=== PATIENT | male | born 1985 | race Caucasian/White ===

== ENCOUNTER 2019-12-26 04:19 | Observation (INO) | payer OTHER, SELFPAY ==
[2019-12-26] VITALS (8 sets, daily range): BP systolic 100–137; BP diastolic 55–71; PULSE 85–96; RESP 17–26; TEMP 36.3–37.2; O2SAT 96–100; BMI 19.6
--- NOTE | ~2019-12-26 | XR_ITS ---
EXAMINATION: XR chest 2V EXAM DATE: 12/26/2019 05:10 INDICATION: Cough. TECHNIQUE: Frontal and lateral projections of the chest obtained and reviewed. Comparison is made to prior examination from 01/26/2009. FINDINGS: There is mild hyperinflation. The lungs are clear. There are no pleural effusions. The c ardiomediastinal silhouette is within normal limits. There is no pneumothorax suspected. The bones and soft tissues are unremarkable. IMPRESSION: No acute cardiopulmonary findings. Reviewed, dictated and finalized at location A.
--- NOTE | 2019-12-26 04:20 | ED.AMS ---
HPI - Altered Mental Status General Chief Complaint: Altered Mental Status Stated Complaint: ISSUES WITH METH, NO SLEEP 2 DAYS Time Seen by Provider: 12/26/19 04:20 Source: patient and EMS Mode of arrival: EMS Limitations: no limitations History of Present Illness HPI narrative: Patient presented via EMS for evaluation of nausea and vomiting. Pt is not altered. Patient reportedly was calling for help outside of hotel he has been staying at. At the time of EMS arrival, patient is tremulous, reporting withdrawal from methamphetamines with last use 3 days ago. Patient reports nausea and numerous episodes of emesis. He states he has been unable to tolerate any oral intake and has not had any access to food. He denies fever, chills, chest pain, cough or shortness of breath. He denies abdominal pain. He states in the past he has struggled also with fentanyl addiction, has been clean for a year and then relapsed with methamphetamine use approximately 10 days ago. Patient currently waiting for a spot at a detox facility. He denies homicidal or suicidal ideation. Related Data Allergies Allergy/AdvReac Type Severity Reaction Status Date / Time banana Allergy Mild rash Verified 09/17/18 09:55 Review of Systems Review of Systems: Narrative: CONSTITUTIONAL: Denies fever, chills, or sweats. EYES: Denies visual changes ENT: Reports rhinorrhea CARDIOVASCULAR: Denies chest pain RESPIRATORY: Denies cough or dyspnea. GASTROINTESTINAL: Denies abdominal pain, reports nausea and vomiting SKIN: Reports injection sites to left forearm MUSCULOSKELETAL: Denies back pain, joint pain, or myalgia. NEUROLOGIC: Reports mild headache PMFSH Past Medical History Medical History (Updated 12/26/19 @ 06:52 by Arielle Flynn MD) Anxiety Asthma Depression Substance abuse Social History Social History Smoking status: Current some day smoker Tobacco type: cigarettes Substance use: current Substance use type: marijuana, amphetamines and opiates Gender identity (if verbalized by the patient): Male Exam Narrative: Exam Narrative: GENERAL: Awake, alert, conversant, thin, tremulous HEAD: Normocephalic, atraumatic. EYES: PERRLA and EOMI. ENT: Nares clear, no rhinorrhea or epistaxis. Mucous membranes dry. NECK: Supple. CHEST: No respiratory distress, breathing even and non labored HEART: Regular rate, sinus rhythm ABDOMEN: Scaphoid, non distended, non tender EXTREMITIES: Normal range of motion. No edema. SKIN: Warm, dry, track yousif of bilateral antecubital fossa's, small wound right upper extremity, no discharge, no bleeding NEURO:No focal deficits. Alert and oriented x3 Course Vital Signs Vital signs: Vital Signs Temperature 36.3 C L 12/26/19 04:20 Pulse Rate 96 12/26/19 04:20 Respiratory Rate 19 12/26/19 04:20 Blood Pressure 118/63 12/26/19 04:20 Pulse Oximetry 98 12/26/19 04:20 Temperature 36.8 C 12/26/19 06:18 Pulse Rate 91 12/26/19 06:18 Respiratory Rate 19 12/26/19 06:18 Blood Pressure 116/64 12/26/19 06:18 Pulse Oximetry 99 12/26/19 06:18 MDM - Altered Mental Status MDM Narrative Medical decision making narrative: Patient presented for evaluation of nausea and vomiting in the setting of what seems to be methamphetamine use and withdrawal. At the time of assessment, patient is tremulous, dehydrated appearing. He is quite thin. Patient is not altered. No reported pain at the time of assessment. IV access obtained and labs are drawn. EKG without any ischemic changes. Laboratory results notable for significant increase in creatinine to 1.7 with prior baseline being 0.6. This is likely all prerenal secondary to dehydration and vomiting. No anion gap. No severe electrolyte derangement. Patient had recurrent vomiting in the ER, he was given Zofran, Reglan, Benadryl, Ativan, and then finally Haldol with resolution in his vomiting. Patient is denying any abdominal pain. His abdominal exam
--- NOTE | 2019-12-26 04:31 | ECG_ITS ---
Measurements Intervals [place] Rate: 93 P: 66 ND: 158 QRS: 79 QRSD: 102 T: 63 QT: 394 QTc: 491 Interpretive Statements SINUS RHYTHM BASELINE ARTIFACT- II, III, AVR, AVL, AVF, V1-V6 BORDERLINE ECG Electronically Signed On 12-26-2019 7:05:10 CDT by Bishnu Espinosa D.O.
[2019-12-26] MEDS: diphenhydrAMINE HCl INJ 50 MG/ML VIAL IV PUSH (04:32)
[2019-12-26] MEDS: LORazepam INJ (*CRX) 2 MG/ML VIAL IV PUSH (04:32)
[2019-12-26] MEDS: ONDANSETRON INJ 4 MG/2 ML VIAL IV PUSH ×2 (04:33→20:00)
[2019-12-26] MEDS: SODIUM CHLORIDE 0.9% IV 2,000 ML 999 ML IV CONT (04:34)
[2019-12-26 04:46] LABS: Glucose Point of Care 70 (65-105)
[2019-12-26 04:51] LABS: Basophils Absolute Auto 0.2 K/mm3 (0.0-0.1); Basophils Percent Auto 1.3 % (0.2-1.2); Eosinophils Absolute Auto 0.2 K/mm3 (0-0.3); Eosinophils Percent Auto 1.2 % (0-4.4); Hematocrit 33.7 % (42.0-52.0); Hemoglobin 12.4 g/dL (14.0-18.0); Immature Granulocyte Absolute 0.04 K/mm3 (0.00-0.031); Immature Granulocyte Percent A 0.3 % (0-0.5); Lymphocytes Absolute Auto 4.28 K/mm3 (0.9-3.2); Lymphocytes Percent Auto 30.9 % (18.3-44.2); Mean Corpuscular HGB Conc 36.8 g/dl (32-36); Mean Corpuscular Volume 84.3 fl (80-100); Mean Platelet Volume 10.1 fl (7.4-10.4); Monocytes Absolute Auto 1.3 K/mm3 (0.1-0.6); Monocytes Percent Auto 9.4 % (2.6-8.5); Neutrophils Absolute Auto 7.9 K/mm3 (1.3-6.7); Neutrophils Percent Auto 56.9 % (45.5-73.1); Platelet Count Result 391 k/mm3 (150-375); Red Cell Distribution Width 12.8 % (11.5-14.5); White Blood Count 13.8 K/mm3 (4.5-10.0)
[2019-12-26 05:00] LABS: INR 1.2; Partial Thromboplastin Time 28.4 SECONDS (22.3-36.8); Prothrombin Time 14.8 Seconds (11.1-14.7)
[2019-12-26 05:10] LABS: Alanine Aminotransferase 43 U/L (4-50); Albumin Level 4.3 g/dL (3.5-5.1); Alkaline Phosphatase 134 U/L (38-126); Anion Gap 14 mmol/L (8-16); Aspartate Amino Transferase 54 U/L (17-59); Bilirubin,Total 1.2 mg/dL (0.2-1.3); Blood Urea Nitrogen 27 mg/dL (9-20); Calcium 8.7 mg/dL (8.4-10.2); Carbon Dioxide 20 mmol/L (22-30); Chloride 98 mmol/L (98-107); Creatine Kinase 510 U/L (55-170); Estimated CRCL calculation 51 ml/min; Estimated Glomerular Filt Rate 47; Glucose 77 mg/dL (75-110); Potassium 3.4 mmol/L (3.4-5.0); Sodium 132 mmol/L (137-145)
[2019-12-26] MEDS: LORazepam INJ (*CRX) 2 MG/ML VIAL 1 MG IV PUSH (05:21)
[2019-12-26] MEDS: METOCLOPRAMIDE HCL INJ 10 MG/2 ML VIAL IV PUSH (05:43)
[2019-12-26] MEDS: HALOPERIDOL LACTATE 5 MG/ML VIAL 2.5 MG IV PUSH (05:43)
[2019-12-26 05:59] LABS: Add Urine Microscopic? YES; Appearance Urine Cloudy (Clear); Bacteria Urine Trace /hpf; Bilirubin Urine Negative (Negative); Blood Urine Negative (Negative); Color Urine Yellow (Yellow); Glucose Urine UA Negative (Negative); Hyaline Casts Urine 30-49 /lpf; Ketones Urine Negative (Negative); Leukocyte Esterase Ur Negative LEU/UL (Negative); Mucus Urine Heavy /lpf; Nitrate Urine Negative (Negative); Protein Urine 1+ mg/dL (Negative); RBC Urine 0-2 /hpf (0-2); Specific Grav Ur 1.018 (1.001-1.035); Urobilinogen Urine Negative mg/dL (<2.0)
[2019-12-26 06:10] LABS: Barbiturate Screen Urine Negative (Negative); Benzodiazepines Screen Urine Negative (Negative)
[2019-12-26 06:12] LABS: Cannabinoid Screen Urine Negative (Negative); Cocaine Screen Urine Negative (Negative); Methadone Screen Urine Negative (Negative); Opiate Screen Urine Negative (Negative); Phencyclidine Screen Urine Negative (Negative)
[2019-12-26 06:36] LABS: Amphetamine Screen Urine Positive (Negative)
[2019-12-26 07:08] LABS: Anion Gap 8 mmol/L (8-16); Blood Urea Nitrogen 26 mg/dL (9-20); Calcium 7.7 mg/dL (8.4-10.2); Carbon Dioxide 20 mmol/L (22-30); Chloride 104 mmol/L (98-107); Creatine Kinase 615 U/L (55-170); Estimated CRCL calculation 62 ml/min; Estimated Glomerular Filt Rate 59; Glucose 68 mg/dL (75-110); Potassium 3.2 mmol/L (3.4-5.0); Sodium 132 mmol/L (137-145)
--- NOTE | 2019-12-26 07:12 | PM.IMHP ---
H&P: HPI History of Present Illness Date/Time: 12/26/19 07:12 Chief complaint: Dehydration/MAICO/Substance abuse Narrative: Miguel Dumont III is a 34 year old male with hx of substance abuse here for nausea and vomiting. Patient arouses but extremely somnolent. As such, the majority of the hx obtained from the chart. I called the salesperson neckties (Samantha Moreno) but no answer at the phone number given. Patient was calling for help outside his hotel he was staying. On EMS arrival, patient with n/v and was tremulous with report of withdrawal from methamphetamine. Patient brought in by EMS. In the ED, patient was hemodynamically stable. Patient was not altered on admission. Creatinine 1.7, WBC 13.8, CXR clear, TCK 615 and UDS positive for Amph elevated. He stated he had been unable to tolerate any oral intake and has not had any access to food. He denied fever, chills, chest pain, cough, shortness of breath or abdominal pain per ED physician note. He has struggled with fentanyl addiction but has been clean for a year. Patient also has hx of methamphetamine abuse and relapsed with methamphetamine use approximately 10 days ago. Patient last used meth 3 days ago. Patient currently waiting for a spot at a detox facility. He denied homicidal or suicidal ideation. Patient received Benadryl 50mg IV, Ativan 2mg IV, Zofran, Reglan, another Ativan dose 1mg and Haldol 2.5mg IV. Review of Systems Review of Systems: ROS unobtainable: Yes unobtainable due to mental status PMFSH Past Medical History Medical History (Updated 12/26/19 @ 07:48 by Hever Brown MD) Anxiety Asthma Depression Hepatitis C antibody positive in blood Substance abuse Family History Family History (Updated 12/26/19 @ 07:38 by Hever Brown MD) Other Patient unable to provide medical history Social History Social History Smoking status: Current some day smoker Tobacco type: cigarettes Alcohol intake: unknown Substance use: current Substance use type: marijuana, amphetamines and opiates Gender identity (if verbalized by the patient): Male Spiritual care concerns: No Meds Home Medications and Allergies Home Medications Medication Instructions Recorded Confirmed Type buprenorphine-naloxone 1 film BUCCAL BID 12/26/19 12/26/19 History buspirone 15 mg PO QID 12/26/19 12/26/19 History gabapentin 300 mg TID 12/26/19 12/26/19 History hydroxyzine pamoate 50 mg PO QID PRN 12/26/19 12/26/19 History prazosin 1 mg HS 12/26/19 12/26/19 History quetiapine 25 mg PO BID PRN 12/26/19 12/26/19 History sertraline 200 mg PO DAILY 12/26/19 12/26/19 History Allergies Allergy/AdvReac Type Severity Reaction Status Date / Time banana Allergy Mild rash Verified 09/17/18 09:55 Vital Signs Vital Signs - 24 hr 12/26/19 04:20 12/26/19 05:48 12/26/19 06:18 Temperature 97.4 F L 98.3 F Pulse Rate 96 87 91 Respiratory Rate 19 26 H 19 Blood Pressure 118/63 109/71 116/64 Pulse Oximetry 98 96 99 12/26/19 06:52 Temperature Pulse Rate 88 Respiratory Rate 20 Blood Pressure 128/70 Pulse Oximetry 99 Exam Narrative: Exam Narrative: AF 98.3 128/70 88 20 99% Gen - well-nourished, well-developed male in no acute respiratory distress who is nontoxic-appearing lying semi recumbent in bed HEENT - normocephalic. Atraumatic. Pupils equal round and poorly reactive. Extraocular motions intact. Sclera clear. Nares patent. Oropharynx was not visualized. Neck - neck was supple. No dominant adenopathy or masses. Chest - lungs are clear to auscultation anteriorly. No wheezes or crackles. CV - heart was regular rate and rhythm. S1-S2. No murmurs gallops or rubs. Abd - abdomen was soft. No apparent tenderness. Nondistended. Positive bowel sounds. Ext - no clubbing, cyanosis or edema. 2+ DP pulses bilaterally. Neuro - patient is somnolent but arouses. He mumbles a few word
--- NOTE | 2019-12-26 08:05 | ADMGEN ---
This patient, Miguel Dumont III, was admitted to Medical Room 343-01. Patient/family oriented to hospital policies and general routines including ID bracelet, bed and alarms, visiting hours, pain management, procedures, bathroom and other care routines, personal items, smoking policy, room service/diet, and visiting hours. Valuables list has been completed. Information on how to activate the Rapid Response Team has been discussed. Patient/Family are encouraged to report perceived risks to care and to ask questions if they do not understand what they are told or what they should do.
[2019-12-26] MEDS: SODIUM CHLORIDE 0.9% IV 1,000 ML 150 ML IV CONT ×3 (08:52→22:47)
[2019-12-26 12:29] LABS: Anion Gap 8 mmol/L (8-16); Blood Urea Nitrogen 25 mg/dL (9-20); Carbon Dioxide 20 mmol/L (22-30); Chloride 105 mmol/L (98-107); Estimated CRCL calculation 77 ml/min; Estimated Glomerular Filt Rate > 60; Glucose 70 mg/dL (75-110); Potassium 3.2 mmol/L (3.4-5.0); Sodium 133 mmol/L (137-145)
[2019-12-26] MEDS: busPIRone HCL 5 MG TABLET 15 MG PO (22:47)
[2019-12-26] MEDS: GABAPENTIN 300 MG CAPSULE PO (22:48)
[2019-12-27 05:11] VITALS: BP 135/80; PULSE 84; RESP 16; TEMP 36.6; O2SAT 100
[2019-12-27] MEDS: SODIUM CHLORIDE 0.9% IV 1,000 ML 150 ML IV CONT (05:29)
[2019-12-27 05:56] LABS: Basophils Absolute Auto 0.1 K/mm3 (0.0-0.1); Basophils Percent Auto 1.4 % (0.2-1.2); Eosinophils Absolute Auto 0.5 K/mm3 (0-0.3); Eosinophils Percent Auto 6.4 % (0-4.4); Hematocrit 31.1 % (42.0-52.0); Hemoglobin 11.1 g/dL (14.0-18.0); Immature Granulocyte Absolute 0.01 K/mm3 (0.00-0.031); Immature Granulocyte Percent A 0.1 % (0-0.5); Lymphocytes Absolute Auto 1.92 K/mm3 (0.9-3.2); Lymphocytes Percent Auto 26.6 % (18.3-44.2); Mean Corpuscular HGB Conc 35.7 g/dl (32-36); Mean Corpuscular Hemoglobin 30.4 pg (26-34); Mean Corpuscular Volume 85.2 fl (80-100); Mean Platelet Volume 9.6 fl (7.4-10.4); Monocytes Absolute Auto 0.5 K/mm3 (0.1-0.6); Monocytes Percent Auto 7.5 % (2.6-8.5); Neutrophils Absolute Auto 4.2 K/mm3 (1.3-6.7); Platelet Count Result 350 k/mm3 (150-375); Red Blood Count 3.65 M/mm3 (4.6-6.20); Red Cell Distribution Width 13.1 % (11.5-14.5); White Blood Count 7.2 K/mm3 (4.5-10.0)
[2019-12-27 06:08] LABS: Alanine Aminotransferase 41 U/L (4-50); Alkaline Phosphatase 105 U/L (38-126); Anion Gap 5 mmol/L (8-16); Aspartate Amino Transferase 55 U/L (17-59); Bilirubin,Total 0.9 mg/dL (0.2-1.3); Blood Urea Nitrogen 11 mg/dL (9-20); Carbon Dioxide 25 mmol/L (22-30); Chloride 108 mmol/L (98-107); Creatine Kinase 399 U/L (55-170); Estimated CRCL calculation 118 ml/min; Estimated Glomerular Filt Rate > 60; Glucose 83 mg/dL (75-110); Potassium 3.3 mmol/L (3.4-5.0); Sodium 138 mmol/L (137-145)
[2019-12-27 06:39] LABS: HIV 1/2 Ab P24 Ag Result Negative (Negative)
[2019-12-27] MEDS: POTASSIUM CHLORIDE 20 MEQ TABLET 40 MEQ PO (07:41)
[2019-12-27 08:00] VITALS: PULSE 86; RESP 18; O2SAT 98
[2019-12-27] MEDS: SERTRALINE HCL 50 MG TABLET 200 MG PO (09:46)
[2019-12-27] MEDS: GABAPENTIN 300 MG CAPSULE PO ×3 (09:47→17:20)
[2019-12-27] MEDS: busPIRone HCL 5 MG TABLET 15 MG PO ×4 (09:47→20:18)
--- NOTE | 2019-12-27 11:06 | PM.IMPN ---
Progress Note: A&P Assessment and Plan (1) Nausea & vomiting: Qualifiers: Vomiting Intractability: intractable Vomiting type: unspecified Qualified Code(s): R11.2 - Nausea with vomiting, unspecified Code(s): R11.2 - Nausea with vomiting, unspecified Status: Acute Assessment and Plan: Patient with intractable n/v felt related to methamphetamine withdrawal. Symptoms better now and able to tolerate oral intake. Continue to monitor. (2) Withdrawal from methamphetamine: Code(s): F15.23 - Other stimulant dependence with withdrawal Status: Acute Assessment and Plan: As above. (3) Methamphetamine abuse: Code(s): F15.10 - Other stimulant abuse, uncomplicated Status: Acute Assessment and Plan: Patient educated about the benefits of abstaining drug use. He appears interested in following up with long-term inpatient rehab. Discussed with case management about coordinating with the rehab facility to see if patient can be discharged and then readmitted there. (4) Dehydration: Code(s): E86.0 - Dehydration Status: Acute Assessment and Plan: Related to the n/v and poor access to food. Eating but not much. He states he has money but buying food has not been a priority. Continue IV fluids. Continue monitor BP and renal function. (5) Elevated CK: Code(s): R74.8 - Abnormal levels of other serum enzymes Status: Acute Assessment and Plan: TCK 615 this morning felt related to the tremors possibly muscle rigidity. Repeat today is 399. Continue IV fluids. (6) MAICO (acute kidney injury): Code(s): N17.9 - Acute kidney failure, unspecified Status: Acute Assessment and Plan: Cr 1.7 on admission. Related to the drug use and dehydration. Creatinine down to 0.7. Not eating much so will continue IV fluids. (7) Asthma: Code(s): J45.909 - Unspecified asthma, uncomplicated Status: Acute Assessment and Plan: No wheezing on exam. Not on chronic inhalers for this. Continue to monitor. (8) Depression: Code(s): F32.9 - Major depressive disorder, single episode, unspecified Status: Acute Assessment and Plan: Mood stable. Appears to want to get better. (9) Hepatitis C antibody positive in blood: Code(s): R76.8 - Other specified abnormal immunological findings in serum Status: Acute Assessment and Plan: Patient with reactive hepatitis-C antibody screen last year. No documentation of viral load. Hepatitis C viral load pending. HIV negative. (10) DVT prophylaxis: Code(s): Z29.9 - Encounter for prophylactic measures, unspecified Status: Acute Assessment and Plan: SCDs Subjective Date/time seen: 12/27/19 11:06 Interval history: Date of service 12/26 34yo male with hx of substance abuse here for intractable nausea and vomiting. Patient feels weak and complains of headache and blurry vision. He denies any sore throat but does have dry mouth. He is tolerating some oral intake but did have slight nausea. No vomiting. Denies chest pain. States he is ready to enter rehab. Exam Narrative: Exam Narrative: AF 98.0 135/80 84 16 100% Gen - NARD lying semirecumbent in bed Chest - CTA bilaterally CV - RRR. S1-S2. Abd - soft, +BS, voluntary guarding but improved with distraction Ext - no edema. 2+ DP pulses bilaterally. Neuro - patient is awake and alert. No tremors. Psych - nml mood but depressed affect Skin - warm and dry Objective Data Vital Signs Vital Signs: Vital Signs - 24 hr 12/26/19 14:00 12/26/19 19:53 12/27/19 05:11 Temperature 97.3 F L 99 F 98 F Pulse Rate 87 85 84 Respiratory Rate 18 17 16 Blood Pressure 113/64 137/70 135/80 Pulse Oximetry 100 100 100 Intake/Output Intake/Output: Intake & Output 12/24/19 12/25/19 12/26/19 12/27/19 23:59 23:59 23:59 23:59 Int
[2019-12-27] MEDS: ONDANSETRON INJ 4 MG/2 ML VIAL IV PUSH (11:49)
[2019-12-27] MEDS: SODIUM CHLORIDE 0.9% IV 1,000 ML 75 ML IV CONT (12:27)
[2019-12-27 14:00] VITALS: BP 122/77; PULSE 86; RESP 18; TEMP 37.1; O2SAT 98
[2019-12-27] MEDS: QUEtiapine FUMARATE 25 MG TABLET PO (15:51)
[2019-12-27] MEDS: LORazepam (*CRX) 0.5 MG TABLET PO (18:08)
[2019-12-27 19:42] VITALS: BP 120/64; PULSE 81; RESP 16; TEMP 37.3; O2SAT 97
[2019-12-28] MEDS: LORazepam (*CRX) 0.5 MG TABLET PO ×3 (00:53→11:05)
[2019-12-28] MEDS: SODIUM CHLORIDE 0.9% IV 1,000 ML 75 ML IV CONT (01:09)
[2019-12-28 05:29] VITALS: BP 143/87; PULSE 78; RESP 18; TEMP 36.7; O2SAT 99
[2019-12-28] MEDS: QUEtiapine FUMARATE 25 MG TABLET PO (06:02)
[2019-12-28 06:55] LABS: Anion Gap 5 mmol/L (8-16); Calcium 8.3 mg/dL (8.4-10.2); Carbon Dioxide 28 mmol/L (22-30); Chloride 106 mmol/L (98-107); Estimated CRCL calculation 136 ml/min; Estimated Glomerular Filt Rate > 60; Glucose 119 mg/dL (75-110); Magnesium 1.7 mg/dL (1.6-2.3); Potassium 3.5 mmol/L (3.4-5.0); Sodium 139 mmol/L (137-145)
[2019-12-28 06:56] LABS: Blood Urea Nitrogen < 2 mg/dL (9-20)
[2019-12-28 08:00] VITALS: PULSE 78; RESP 18; O2SAT 99
[2019-12-28] MEDS: GABAPENTIN 300 MG CAPSULE PO ×2 (08:43→13:02)
[2019-12-28] MEDS: busPIRone HCL 5 MG TABLET 15 MG PO ×2 (08:43→13:02)
[2019-12-28] MEDS: SERTRALINE HCL 50 MG TABLET 200 MG PO (08:44)
--- NOTE | 2019-12-28 10:15 | PC.NURSE ---
Ambulated with standby assist down hallway and back to room. Tolerated with no problems.
--- NOTE | 2019-12-28 11:59 | PM.DS ---
DS: Admitting Diagnosis Admitting Diagnosis Admitting Diagnosis: Dehydration/MAICO/Substance abuse DS: Discharge Diagnosis Discharge Diagnosis (1) Nausea & vomiting: Qualifiers: Vomiting Intractability: intractable Vomiting type: unspecified Qualified Code(s): R11.2 - Nausea with vomiting, unspecified Code(s): R11.2 - Nausea with vomiting, unspecified Status: Acute Assessment and Plan: Patient with intractable n/v felt related to methamphetamine withdrawal. Symptoms better now and able to tolerate oral intake. (2) Withdrawal from methamphetamine: Code(s): F15.23 - Other stimulant dependence with withdrawal Status: Acute Assessment and Plan: As above. (3) Methamphetamine abuse: Code(s): F15.10 - Other stimulant abuse, uncomplicated Status: Acute Assessment and Plan: Patient educated about the benefits of abstaining drug use. He appears interested in following up with long-term inpatient rehab. Discussed with case management today but no rehab bed available at this time. Patient will need to keep in contact with these facilities to see when a bed will be available. He and family was informed about this. (4) Dehydration: Code(s): E86.0 - Dehydration Status: Acute Assessment and Plan: Related to the n/v and poor access to food. Eating but not much. He states he has money but buying food has not been a priority. Treated with IV fluids. (5) Elevated CK: Code(s): R74.8 - Abnormal levels of other serum enzymes Status: Acute Assessment and Plan: TCK up to 615 felt related to the tremors possibly muscle rigidity. With IV fluids, repeat dropped to 399. (6) MAICO (acute kidney injury): Code(s): N17.9 - Acute kidney failure, unspecified Status: Acute Assessment and Plan: Cr 1.7 on admission. Related to the drug use and dehydration. Creatinine down to 0.6. Eating better. (7) Asthma: Code(s): J45.909 - Unspecified asthma, uncomplicated Status: Acute Assessment and Plan: No wheezing on exam. Not on chronic inhalers for this. (8) Depression: Code(s): F32.9 - Major depressive disorder, single episode, unspecified Status: Acute Assessment and Plan: Mood stable. Appears to want to get better. Drug rehab would be of benefit for this patient (9) Hepatitis C antibody positive in blood: Code(s): R76.8 - Other specified abnormal immunological findings in serum Status: Acute Assessment and Plan: Patient with reactive hepatitis-C antibody screen last year. No documentation of viral load. Hepatitis C viral load pending. HIV negative. DS: Summary Hospital Course Reason for hospitalization: 34yo male here for intractable nausea and vomiting from methamphetamine abuse/withdrawal. Please see H&P for details Hospital Course: As above Time Spent with Patient Time attestation: Total time spent providing and/or coordinating discharge services:35 minutes Time spent: Greater than 30 minutes Specific discharge activities: Care of the patient, discussion with care coordination and left message with family Exam Narrative: Exam Narrative: AF 98.1 143/87 78 18 99% Gen - NARD lying semirecumbent in bed Chest - CTA bilaterally CV - RRR. S1-S2. Abd - soft, +BS, NT Ext - no edema Neuro - patient is awake and alert. No tremors. Psych - more engaged Skin - warm and dry DS: Data Data Completed and Pending Labs on day of discharge: Labs from last 24 hours 12/28/19 05:22 Sodium 139 Potassium 3.5 Chloride 106 Carbon Dioxide 28 Anion Gap 5 L BUN < 2 L Creatinine 0.60 L Estim Creat Clear Calc 136 Estimated GFR > 60 Glucose 119 H Calcium 8.3 L Magnesium 1.7 Discharge Plan Discharge Attending physician on discharge: Hever Brown Discharging Clinician: Will Brown
[2019-12-28 14:00] VITALS: BP 130/75; PULSE 104; RESP 18; TEMP 37.3; O2SAT 99
[2019-12-28] MEDS: HEPARIN SODIUM 5,000 UNITS/ML VIAL 5000 UNITS SUB-Q (14:20)
[2019-12-30 19:48] LABS: Hepatitis C Viral RNA PCR 38100 IU/mL
[2020-01-01 22:37] LABS: HCV Genotype, LiPA 3
--- NOTE | 2020-01-05 15:04 | PC.NURSE ---
HEp C Viral load- 44427 and 4.58. Results faxed to Dr. Marley. Dr. Kevin jimenez.
== END 2019-12-28 14:50 | disposition home or self-care (01) ==
LOC: ANHED 06:48 → ANH3MED 07:45
PROVIDERS: Admitting Provider Internal Medicine; Emergency Provider Emergency Medicine; PCP Family Medicine; Visit Provider Internal Medicine
DX: F15.23 Other stimulant dependence with withdrawal (principal); N17.9 Acute kidney failure, unspecified; E86.0 Dehydration; R11.15 Cyclical vomiting syndrome unrelated to migraine; J45.909 Unspecified asthma, uncomplicated; F41.9 Anxiety disorder, unspecified; F32.9 Major depressive disorder, single episode, unspecified; R74.8 Abnormal levels of other serum enzymes; R76.8 Other specified abnormal immunological findings in serum; F17.210 Nicotine dependence, cigarettes, uncomplicated; F11.90 Opioid use, unspecified, uncomplicated; F12.90 Cannabis use, unspecified, uncomplicated
CPT/HCPCS: 36415; 71046; 80048; 80053; 80307; 81001; 82550; 82948; 83735; 85025; 85610; 85730; 86703; 87086; 87088; 87522; 93005; 96361; 96372; 96374; 96375; 96376; 99285; A9270; G0378; G0379; G0432; J1200; J1630; J1644; J2060; J2405; J2765; J7030

== ENCOUNTER 2019-12-29 12:20 | Emergency (ER) | payer OTHER, SELFPAY ==
[2019-12-29 13:17] VITALS: BP 144/90; PULSE 97; RESP 16; TEMP 36.8; O2SAT 100
--- NOTE | 2019-12-29 14:27 | ECG_ITS ---
Measurements Intervals [place] Rate: 110 P: 72 [place]: 135 QRS: 74 QRSD: 93 T: 60 QT: 356 QTc: 482 Interpretive Statements SINUS TACHYCARDIA ABNORMAL ECG Electronically Signed On 12-30-2019 6:41:36 CDT by Bishnu Espinosa D.O.
[2019-12-29 16:19] VITALS: BP 130/91; PULSE 110; RESP 16; TEMP 36.8; O2SAT 98
--- NOTE | 2019-12-29 19:03 | PC.NURSE ---
PER LAI FREEDMAN WHO PLACED ORDERS ON PT, SHE STATES THAT IF [employer] DON'T THINK THAT PT NEEDS ORDERS THEN WE CAN HOLD OFF ON THEM.
[2019-12-29 19:32] VITALS: RESP 18
--- NOTE | 2019-12-29 19:36 | PC.NURSE ---
during initial assessment with EDP Dr. Berry and this RN at pt's bedside, pt requests to be transferred to another facility. pt refusing any testing here. pt denies SI/HI. pt offered AMA form to sign and leave, pt refusing to sign anything. Pt states that he will just call EMS to take him to another facilty. Pt educated that he cannot do that, that EMS will non transfer him from this facility to another facility w/o certificate of transfer and proper documentation/paperwork because it is a violation of state laws.
--- NOTE | 2019-12-29 19:38 | ED.GENADULT ---
HPI - General Adult General Chief complaint: Overdose Stated complaint: overdose on meth Time Seen by Provider: 12/29/19 19:30 History of Present Illness HPI narrative: Pt c/o not feeling well due after doing meth earlier today but now states he feels fine and refusing any work up, will signed out ama. Pt is alert and oriented x 3. Denies any suicidal or homicidal ideations. Denies any thoughts of self injury. Denies overdosing on meth, states he was having some bad effects earlier but now resolved. Related Data Home Medications Medication Instructions Recorded Confirmed buspirone 5 mg PO BID 12/29/19 gabapentin 100 mg PO BID 12/29/19 sertraline [Zoloft] 25 mg PO DAILY 12/29/19 Allergies Allergy/AdvReac Type Severity Reaction Status Date / Time No Known Allergies Allergy Verified 12/29/19 13:21 Review of Systems Review of Systems: All systems reviewed & are unremarkable except as noted in HPI and below Constitutional: Constitutional: Denies body ache(s), Denies chills, Denies excessive sweating, Denies fatigue, Denies fever(s), Denies headache(s), Denies lethargy, Denies malaise, Denies weakness and Denies weight loss Eyes: Eyes: Denies blurry vision, Denies change in vision and Denies loss of vision ENT: Denies dizziness, Denies ear discharge, Denies headache(s), Denies lip swelling, Denies epistaxis, Denies nasal congestion, Denies neck pain, Denies throat swelling and Denies tongue swelling Cardiovascular: Cardiovascular: Denies chest pain, Denies chest pain at rest, Denies chest pain with activity, Denies diaphoresis, Denies rapid heart rate, Denies edema, Denies irregular heart rhythm, Denies lightheadedness, Denies palpitations, Denies dyspnea and Denies dyspnea on exertion Respiratory: Respiratory: Denies chest congestion, Denies cough, Denies hemoptysis, Denies dyspnea and Denies dyspnea on exertion Gastrointestinal: Gastrointestinal: Denies abdominal pain, Denies melena, Denies hematochezia, Denies diarrhea, Denies nausea, Denies vomiting and Denies hematemesis Musculoskeletal: Musculoskeletal: Denies abnormal gait, Denies deformity, Denies joint swelling, Denies limited range of motion, Denies neck pain and Denies numbness Neurologic: Denies Abnormal speech present, Denies abnormal gait, Denies confusion, Denies dizziness, Denies headache(s), Denies focal weakness, Denies loss of vision, Denies numbness, Denies Other visual disturbances, Denies Sensory deficit (Neuro) and Denies weakness Psychiatric: Psychiatric: Denies confusion, Denies depression, Denies auditory hallucinations, Denies homicidal ideation and Denies suicidal ideation Endocrine: Endocrine: Denies cold intolerance, Denies excessive sweating, Denies fatigue, Denies heat intolerance and Denies palpitations Hematologic/Lymphatic: Hematologic/Lymphatic: Denies easy bleeding and Denies easy bruising Allergic/Immunologic: Allergic/Immunologic: Denies lip swelling, Denies throat swelling and Denies tongue swelling [facility] Social History Social History Gender identity (if verbalized by the patient): Male Exam Const: General: cooperative, healthy appearing, comfortable, no acute distress, well developed, alert and awake; No confusion Orientation/consciousness: oriented to person, oriented to place, oriented to time, patient oriented x3 and No confusion Limitations: no limitations HENMT: Head: normal to inspection, normocephalic and atraumatic Ears: hearing grossly normal bilaterally, TM normal on the right and TM normal on the left General nose exam: Normal external nose present, Normal nares present and No nasal discharge present Face and sinus: normal facial exam Mouth: Yes Normal oral and palatal mucosa present, Yes lip normal, Yes tongue normal and Yes oropharynx normal Throat: posterior oropharynx normal, tonsils normal and uvula midline Eyes: General: appearance normal, both eyes and all related structures Pupils: Equal, round and re
[2019-12-29 20:46] VITALS: BP 161/107; PULSE 111; RESP 20; TEMP 37.2; O2SAT 100
[2019-12-29 21:29] LABS: Add Urine Microscopic? YES; Appearance Urine Clear (Clear); Bilirubin Urine Negative (Negative); Blood Urine Negative (Negative); Color Urine Yellow (Yellow); Glucose Urine UA Negative (Negative); Ketones Urine Negative (Negative); Leukocyte Esterase Ur Negative LEU/UL (Negative); Mucus Urine Heavy /lpf; Nitrate Urine Negative (Negative); Protein Urine 1+ mg/dL (Negative); Specific Grav Ur 1.027 (1.001-1.035); Squamous Epithelial Cell Urine Occasional /hpf (Few)
[2019-12-29] MEDS: SODIUM CHLORIDE 0.9% IV 1,000 ML 999 ML IV CONT (21:37)
[2019-12-29 21:41] LABS: Basophils Absolute Auto 0.1 K/mm3 (0.0-0.1); Basophils Percent Auto 0.7 % (0.2-1.2); Eosinophils Absolute Auto 0.1 K/mm3 (0-0.3); Eosinophils Percent Auto 0.9 % (0-4.4); Hematocrit 37.2 % (42.0-52.0); Immature Granulocyte Absolute 0.02 K/mm3 (0.00-0.031); Immature Granulocyte Percent A 0.2 % (0-0.5); Lymphocytes Absolute Auto 2.57 K/mm3 (0.9-3.2); Lymphocytes Percent Auto 29.6 % (18.3-44.2); Mean Corpuscular HGB Conc 34.9 g/dl (32-36); Mean Corpuscular Hemoglobin 30.2 pg (26-34); Mean Corpuscular Volume 86.5 fl (80-100); Mean Platelet Volume 9.3 fl (7.4-10.4); Monocytes Absolute Auto 0.6 K/mm3 (0.1-0.6); Monocytes Percent Auto 7.3 % (2.6-8.5); Neutrophils Absolute Auto 5.3 K/mm3 (1.3-6.7); Neutrophils Percent Auto 61.3 % (45.5-73.1); Platelet Count Result 453 k/mm3 (150-375); Red Cell Distribution Width 13.7 % (11.5-14.5); White Blood Count 8.7 K/mm3 (4.5-10.0)
[2019-12-29 21:45] LABS: Barbiturate Screen Urine Negative (Negative); Benzodiazepines Screen Urine Negative (Negative)
[2019-12-29 21:47] LABS: Cannabinoid Screen Urine Negative (Negative); Cocaine Screen Urine Negative (Negative); Methadone Screen Urine Negative (Negative); Opiate Screen Urine Negative (Negative); Phencyclidine Screen Urine Negative (Negative)
[2019-12-29 21:52] LABS: Alanine Aminotransferase 53 U/L (4-50); Albumin Level 4.2 g/dL (3.5-5.1); Alkaline Phosphatase 136 U/L (38-126); Anion Gap 8 mmol/L (8-16); Aspartate Amino Transferase 48 U/L (17-59); Bilirubin,Total 0.6 mg/dL (0.2-1.3); Blood Urea Nitrogen 12 mg/dL (9-20); Calcium 9.3 mg/dL (8.4-10.2); Carbon Dioxide 29 mmol/L (22-30); Chloride 103 mmol/L (98-107); Creatine Kinase 266 U/L (55-170); Estimated CRCL calculation 113 ml/min; Estimated Glomerular Filt Rate > 60; Glucose 123 mg/dL (75-110); Potassium 3.7 mmol/L (3.4-5.0); Sodium 140 mmol/L (137-145)
[2019-12-29 21:56] LABS: Ethanol < 10 mg/dL (<10); Salicylate < 1.0 mg/dL (2-20)
[2019-12-29 22:06] LABS: Amphetamine Screen Urine Positive (Negative)
[2019-12-29 23:35] VITALS: BP 159/109; PULSE 92; RESP 17; O2SAT 100
--- NOTE | 2019-12-30 00:26 | PC.NURSE ---
AT APPROX 2345 ON 12/29/2019 PT TAKEN TO OPPOSITE END OF ED TO USE WALL PHONE. AT APPROX 0010 ON 12/30/2019 THIS RN WENT TO PT'S ED ROOM #13 TO D/C HIM. PT NOT IN ROOM, NOR ANY OF HIS BELONGINGS LEFT IN ROOM #13. PT LEFT PRIOR TO SIGNING D/C PAPERWORK.
== END 2019-12-30 00:10 | disposition left against medical advice (07) ==
LOC: ANHED 19:56
PROVIDERS: Physician Assistant; Emergency Provider Emergency Medicine; PCP Family Medicine
DX: F15.10 Other stimulant abuse, uncomplicated (principal)
CPT/HCPCS: 36415; 80053; 80307; 81001; 82550; 85025; 93005; 96360; 99283; J7030

== ENCOUNTER 2019-12-30 00:51 | Emergency (ER) | payer OTHER, SELFPAY ==
[2019-12-30 00:54] VITALS: BP 166/107; PULSE 92; RESP 16; TEMP 36.6; O2SAT 100
[2019-12-30 00:59] VITALS: BP 166/107; PULSE 92; TEMP 36.6; O2SAT 100
--- NOTE | 2019-12-30 01:25 | PC.NURSE ---
pt to triage desk asking to be seen by md. explained to the patient., he was just d/c'd from this ed, he has chosen to sign back in and be seen by the md, and would have to wait until a bed becomes available. he has been told this multiple times.
--- NOTE | 2019-12-30 02:44 | ED.GENADULT ---
HPI - General Adult General Chief complaint: Unspecified Stated complaint: something wrong History of Present Illness HPI narrative: Pt signed back in, states he's signing back in because we didn't do anything for him and he feels something is wrong and wants to talk to the hand cigar making supervisor. Pt walking with a large suitcase and another large bag. Pt states he is homeless. Pt was seen here tonight, labs were done and was given IVF a few hours ago and just discharged less than an hour ago. Related Data Home Medications Medication Instructions Recorded Confirmed buspirone 5 mg PO BID 12/29/19 gabapentin 100 mg PO BID 12/29/19 sertraline [Zoloft] 25 mg PO DAILY 12/29/19 Allergies Allergy/AdvReac Type Severity Reaction Status Date / Time No Known Allergies Allergy Verified 12/29/19 13:21 Review of Systems Review of Systems: All systems reviewed & are unremarkable except as noted in HPI and below Constitutional: Constitutional: Denies body ache(s), Denies chills, Denies excessive sweating, Denies fatigue, Denies fever(s), Denies headache(s), Denies lethargy, Denies malaise, Denies weakness and Denies weight loss Eyes: Eyes: Denies blurry vision, Denies change in vision and Denies loss of vision ENT: Denies dizziness, Denies ear discharge, Denies headache(s), Denies lip swelling, Denies epistaxis, Denies nasal congestion, Denies neck pain, Denies throat swelling and Denies tongue swelling Cardiovascular: Cardiovascular: Denies chest pain, Denies chest pain at rest, Denies chest pain with activity, Denies diaphoresis, Denies rapid heart rate, Denies edema, Denies irregular heart rhythm, Denies lightheadedness, Denies palpitations, Denies dyspnea and Denies dyspnea on exertion Respiratory: Respiratory: Denies chest congestion, Denies cough, Denies hemoptysis, Denies dyspnea and Denies dyspnea on exertion Gastrointestinal: Gastrointestinal: Denies abdominal pain, Denies melena, Denies hematochezia, Denies diarrhea, Denies nausea, Denies vomiting and Denies hematemesis Musculoskeletal: Musculoskeletal: Denies abnormal gait, Denies deformity, Denies joint swelling, Denies limited range of motion, Denies neck pain and Denies numbness Neurologic: Denies Abnormal speech present, Denies abnormal gait, Denies confusion, Denies dizziness, Denies headache(s), Denies focal weakness, Denies loss of vision, Denies numbness, Denies Other visual disturbances, Denies Sensory deficit (Neuro) and Denies weakness Psychiatric: Psychiatric: Denies confusion, Denies depression, Denies auditory hallucinations, Denies homicidal ideation and Denies suicidal ideation Endocrine: Endocrine: Denies cold intolerance, Denies excessive sweating, Denies fatigue, Denies heat intolerance and Denies palpitations Hematologic/Lymphatic: Hematologic/Lymphatic: Denies easy bleeding and Denies easy bruising Allergic/Immunologic: Allergic/Immunologic: Denies lip swelling, Denies throat swelling and Denies tongue swelling PMFSH Social History Social History Gender identity (if verbalized by the patient): Male Exam Const: General: cooperative, healthy appearing, comfortable, no acute distress, well developed, alert and awake; No confusion Orientation/consciousness: oriented to person, oriented to place, oriented to time, patient oriented x3 and No confusion Limitations: no limitations HENMT: Head: normal to inspection, normocephalic and atraumatic Ears: hearing grossly normal bilaterally, TM normal on the right and TM normal on the left General nose exam: Normal external nose present, Normal nares present and No nasal discharge present Face and sinus: normal facial exam Mouth: Yes Normal oral and palatal mucosa present, Yes lip normal, Yes tongue normal and Yes oropharynx normal Throat: posterior oropharynx normal, tonsils normal and uvula midline Eyes: General: appearance normal, both eyes and all related structures Pupils: Equal, round and reactive pupils presen
[2019-12-30 03:42] VITALS: BP 168/98; PULSE 95; RESP 20; O2SAT 100
== END 2019-12-30 04:16 | disposition home or self-care (01) ==
LOC: ANHED 03:11
PROVIDERS: Emergency Provider Emergency Medicine; PCP Family Medicine
DX: F15.10 Other stimulant abuse, uncomplicated (principal); Z59.0 Homelessness
CPT/HCPCS: 99281

== ENCOUNTER 2019-12-30 04:37 | Emergency (ER) | payer OTHER, SELFPAY ==
--- NOTE | 2019-12-30 04:52 | ED.PSYCH ---
HPI - Psych General Chief Complaint: Psychiatric Symptoms Stated Complaint: si Time Seen by Provider: 12/30/19 04:51 History of Present Illness HPI Narrative: Pt c/o suicidal ideation, started this morning, because you guys won't help me . Pt was here earlier this evening due to Meth abuse. Denies homicidal ideations. Denies plan. Related Data Home Medications Medication Instructions Recorded Confirmed buspirone 5 mg PO BID 12/29/19 gabapentin 100 mg PO BID 12/29/19 sertraline [Zoloft] 25 mg PO DAILY 12/29/19 Allergies Allergy/AdvReac Type Severity Reaction Status Date / Time No Known Allergies Allergy Verified 12/30/19 06:07 Review of Systems Review of Systems: All systems reviewed & are unremarkable except as noted in HPI and below Constitutional: Constitutional: Denies body ache(s), Denies chills, Denies excessive sweating, Denies fatigue, Denies fever(s), Denies headache(s), Denies lethargy, Denies malaise, Denies weakness and Denies weight loss Eyes: Eyes: Denies blurry vision, Denies change in vision and Denies loss of vision ENT: Denies dizziness, Denies ear discharge, Denies headache(s), Denies lip swelling, Denies epistaxis, Denies nasal congestion, Denies neck pain, Denies throat swelling and Denies tongue swelling Cardiovascular: Cardiovascular: Denies chest pain, Denies chest pain at rest, Denies chest pain with activity, Denies diaphoresis, Denies rapid heart rate, Denies edema, Denies irregular heart rhythm, Denies lightheadedness, Denies palpitations, Denies dyspnea and Denies dyspnea on exertion Respiratory: Respiratory: Denies chest congestion, Denies cough, Denies hemoptysis, Denies dyspnea and Denies dyspnea on exertion Gastrointestinal: Gastrointestinal: Denies abdominal pain, Denies melena, Denies hematochezia, Denies diarrhea, Denies nausea, Denies vomiting and Denies hematemesis Musculoskeletal: Musculoskeletal: Denies abnormal gait, Denies deformity, Denies joint swelling, Denies limited range of motion, Denies neck pain and Denies numbness Neurologic: Denies Abnormal speech present, Denies abnormal gait, Denies confusion, Denies dizziness, Denies headache(s), Denies focal weakness, Denies loss of vision, Denies numbness, Denies Other visual disturbances, Denies Sensory deficit (Neuro) and Denies weakness Psychiatric: Psychiatric: Denies confusion, Denies depression, Denies auditory hallucinations, Denies homicidal ideation and Denies suicidal ideation Endocrine: Endocrine: Denies cold intolerance, Denies excessive sweating, Denies fatigue, Denies heat intolerance and Denies palpitations Hematologic/Lymphatic: Hematologic/Lymphatic: Denies easy bleeding and Denies easy bruising Allergic/Immunologic: Allergic/Immunologic: Denies lip swelling, Denies throat swelling and Denies tongue swelling PMFSH Social History Social History Gender identity (if verbalized by the patient): Male Exam Const: General: cooperative, healthy appearing, comfortable, no acute distress, well developed, alert and awake; No confusion Orientation/consciousness: oriented to person, oriented to place, oriented to time, patient oriented x3 and No confusion Limitations: no limitations HENMT: Head: normal to inspection, normocephalic and atraumatic Ears: hearing grossly normal bilaterally, TM normal on the right and TM normal on the left General nose exam: Normal external nose present, Normal nares present and No nasal discharge present Face and sinus: normal facial exam Mouth: Yes Normal oral and palatal mucosa present, Yes lip normal, Yes tongue normal and Yes oropharynx normal Throat: posterior oropharynx normal, tonsils normal and uvula midline Eyes: General: appearance normal, both eyes and all related structures Pupils: Equal, round and reactive pupils present EOM: EOMs intact bilaterally Neck: Neck: normal visual inspection, full ROM, no lymphadenopathy and no meningeal signs Chest: Chest palpation & in
[2019-12-30 05:03] VITALS: BP 138/92; PULSE 89; RESP 16; TEMP 37.1; O2SAT 99
--- NOTE | 2019-12-30 05:10 | PC.NURSE ---
patients belongings in [facility] c [facility] room.
--- NOTE | 2019-12-30 05:15 | PC.NURSE ---
pt c/o SI. pt was evaluated in ED x2 today. pt was discharged when he went back out to triage and stated he was suicidal because we did nothing for him. pt states, I feel like crap and you guys only gave me fluids once. pt is very paranoid upon eval. pt stating, I know she is here and I know people are talking about me. pt states, they just swept me under the rug because they think I have a drug addict. pt has hx of meth use, last used 2 days ago. pt denies HI. when asked about SI plan pt states, there are numerous ways. pt refuses to tell this RN his plan. pt cooperative during assessment. pt changed into scrubs and objects removed from the room. sitter at bedside; will continue to monitor pt for baseline status changes. per MD pt is medically cleared and we can call crisis. pt belongings locked in [facility] room
[2019-12-30 06:59] VITALS: BP 144/100; PULSE 100; RESP 19; O2SAT 99
--- NOTE | 2019-12-30 08:25 | PC.NURSE ---
assuming care of pt from Wanda URBINA. Pt states he wants to leave due to lack of proper care from previous visits here yesterday. Pt state he is SI and when asked what his plan was he states well I am a drug user . Pt making paranoid statements. Pt given breakfast tray. Pt states he uses meth and is homeless. Pt has sitter at bedside and all objects of harm removed.
--- NOTE | 2019-12-30 09:25 | PC.NURSE ---
Pt on phone with crisis center for help with crisis unit.
[2019-12-30 20:04] LABS: SARS-CoV-2 RNA PCR Negative
== END 2019-12-30 17:05 ==
PROVIDERS: Emergency Medicine; Emergency Provider Emergency Medicine; PCP Family Medicine
DX: R45.851 Suicidal ideations (principal); F15.10 Other stimulant abuse, uncomplicated; Z20.828 Contact with and (suspected) exposure to other viral communicable diseases
CPT/HCPCS: 87635; 99285; C9803; U0003

== ENCOUNTER 2020-08-07 20:33 | Emergency (ER) | payer OTHER, SELFPAY ==
[2020-08-07] VITALS (7 sets, daily range): BP systolic 109–122; BP diastolic 76–78; PULSE 103–124; RESP 14–22; TEMP 36.4; O2SAT 96–100
[2020-08-07] MEDS: LORazepam INJ (*CRX) 2 MG/ML VIAL IV PUSH (21:06)
[2020-08-07 21:20] LABS: Alanine Aminotransferase 57 U/L (4-50); Albumin Level 4.9 g/dL (3.5-5.1); Alkaline Phosphatase 111 U/L (38-126); Anion Gap 10 mmol/L (8-16); Aspartate Amino Transferase 58 U/L (17-59); Bilirubin,Total 0.6 mg/dL (0.2-1.3); Blood Urea Nitrogen 12 mg/dL (9-20); Carbon Dioxide 30 mmol/L (22-30); Chloride 108 mmol/L (98-107); Estimated Glomerular Filt Rate > 60; Glucose 59 mg/dL (75-110); Potassium 3.4 mmol/L (3.4-5.0); Sodium 148 mmol/L (137-145)
[2020-08-07 21:24] LABS: Basophils Absolute Auto 0.2 K/mm3 (0.0-0.1); Basophils Percent Auto 1.4 % (0.2-1.2); Eosinophils Absolute Auto 0.3 K/mm3 (0-0.3); Eosinophils Percent Auto 2.4 % (0-4.4); Hematocrit 40.3 % (42.0-52.0); Hemoglobin 14.2 g/dL (14.0-18.0); Immature Granulocyte Absolute 0.03 K/mm3 (0.00-0.031); Immature Granulocyte Percent A 0.2 % (0-0.5); Lymphocytes Absolute Auto 5.17 K/mm3 (0.9-3.2); Mean Corpuscular HGB Conc 35.2 g/dl (32-36); Mean Corpuscular Hemoglobin 30.3 pg (26-34); Mean Corpuscular Volume 86.1 fl (80-100); Mean Platelet Volume 10.1 fl (7.4-10.4); Monocytes Absolute Auto 0.8 K/mm3 (0.1-0.6); Monocytes Percent Auto 6.5 % (2.6-8.5); Neutrophils Absolute Auto 5.8 K/mm3 (1.3-6.7); Neutrophils Percent Auto 47.5 % (45.5-73.1); Platelet Count Result 358 k/mm3 (150-375); Red Blood Count 4.68 M/mm3 (4.6-6.20); Red Cell Distribution Width 12.9 % (11.5-14.5); White Blood Count 12.3 K/mm3 (4.5-10.0)
--- NOTE | 2020-08-07 21:29 | PC.NURSE ---
Patient in room sitting on stretcher and off. Patient frequently reminded to sit in bed. Patient cooperative. solar technician in room sitting with patient for frequent reminders.
--- NOTE | 2020-08-07 21:47 | PC.NURSE ---
Patient's girlfriend arrives to bedside.
--- NOTE | 2020-08-07 22:23 | ED.GENADULT ---
HPI - General Adult General Chief complaint: Unspecified Stated complaint: withdrawals, uses fentanyl Time Seen by Provider: 08/07/20 20:42 Source: patient Mode of arrival: ambulatory Limitations: no limitations History of Present Illness HPI narrative: 34-year-old with a history of opioid addiction presents to the ER with complaints of profuse sweating, feeling agitated. Patient states he was sober for last 7 months and started using again this afternoon. He states that he has used heroin, methamphetamine and fentanyl. Denies any chest pain or shortness of breath. He states that he is very fidgety. Onset (ago): day(s) (1) Associated symptoms: denies other symptoms Related Data Home Medications Medication Instructions Recorded Confirmed buprenorphine-naloxone 1 film BUCCAL BID 12/26/19 12/26/19 buspirone 15 mg PO QID 12/26/19 12/26/19 gabapentin 300 mg TID 12/26/19 12/26/19 hydroxyzine pamoate 50 mg PO QID PRN 12/26/19 12/26/19 prazosin 1 mg HS 12/26/19 12/26/19 sertraline 200 mg PO DAILY 12/26/19 12/26/19 buspirone 5 mg PO BID 12/29/19 gabapentin 100 mg PO BID 12/29/19 sertraline [Zoloft] 25 mg PO DAILY 12/29/19 Allergies Allergy/AdvReac Type Severity Reaction Status Date / Time banana Allergy Mild rash Verified 12/31/19 14:24 Review of Systems Review of Systems: All systems reviewed & are unremarkable except as noted in HPI and below Constitutional: Constitutional: Reports no additional constitutional complaints Eyes: Eyes: Reports no additional eye complaints ENT: Reports system reviewed and no additional complaints, except as documented Cardiovascular: Cardiovascular: Reports no additional cardiovascular complaints Respiratory: Respiratory: Reports no additional respiratory complaints Gastrointestinal: Gastrointestinal: Reports no additional gastrointestinal complaints Musculoskeletal: Musculoskeletal: Reports no additional musculoskeletal complaints PMFSH Past Medical History Medical History Anxiety Asthma Depression Hepatitis C antibody positive in blood Substance abuse Family History Family History Other Patient unable to provide medical history Social History Social History Smoking status: Current some day smoker Tobacco type: cigarettes Alcohol intake: unknown Substance use: current Substance use type: heroin, amphetamines, sedatives and opiates Gender identity (if verbalized by the patient): Male Spiritual care concerns: No Exam Narrative: Exam Narrative: GENERAL: , well-nourished hyperventilating diaphoretic . HEAD: Normocephalic, atraumatic. EYES: PERRLA and EOMI. NECK: Supple. CHEST: Clear to auscultation. No respiratory distress. HEART: Regular rate and rhythm. No murmur heard. Normal peripheral pulses. ABDOMEN: Soft, nontender, nondistended, normal active bowel sounds. EXTREMITIES: Normal range of motion. No edema. SKIN: Diaphoretic NEURO: No focal deficits. Alert and oriented x3. PSYCH: Normal mood and affect. Course Course Emergency Course: Patient received 2 mg of Ativan IV Ativan. Advised him to follow-up with detox program tomorrow. Vital Signs Vital signs: Vital Signs Temperature 36.4 C 08/07/20 20:32 Pulse Rate 110 H 08/07/20 20:32 Respiratory Rate 22 H 08/07/20 20:32 Blood Pressure 109/76 08/07/20 20:32 Pulse Oximetry 99 08/07/20 20:32 Temperature 36.4 C 08/07/20 20:32 Pulse Rate 124 H 08/07/20 21:46 Respiratory Rate 18 08/07/20 21:46 Blood Pressure 109/76 08/07/20 20:32 Pulse Oximetry 100 08/07/20 21:04 Medical Decision Making Vital Signs Vital Signs: Vital Signs Temperature 36.4 C 08/07/20 20:32 Pulse Rate 110 H 08/07/20 20:32 Respiratory Rate 22 H 08/07/20 20:32 Blood Pressure 109/76 08/07/20 20:32 Pulse Oximetry 99 05/0
[2020-08-08 03:12] LABS: Glucose Point of Care 94 (65-105)
== END 2020-08-07 22:30 | disposition home or self-care (01) ==
PROVIDERS: Emergency Provider Family Medicine; PCP Family Medicine
DX: F11.10 Opioid abuse, uncomplicated (principal); F41.9 Anxiety disorder, unspecified; J45.909 Unspecified asthma, uncomplicated; F32.9 Major depressive disorder, single episode, unspecified; F17.210 Nicotine dependence, cigarettes, uncomplicated
CPT/HCPCS: 36415; 80053; 82948; 85025; 96374; 99284; J2060

== ENCOUNTER 2020-10-03 01:25 | Emergency (ER) | payer OTHER, SELFPAY ==
[2020-10-03] VITALS (34 sets, daily range): BP systolic 106–139; BP diastolic 70–109; PULSE 73–113; RESP 12–24; TEMP 36.5–37.3; O2SAT 98–100
--- NOTE | ~2020-10-03 | CT_ITS ---
EXAMINATION: CT abdomen pelvis w con DATE: 10/03/2020 11:56 INDICATION: Lower abdominal pain TECHNIQUE: Computed tomography (CT) of the abdomen and pelvis was performed with 100 cc Omnipaque 350 intravenous contrast. The dose-length product was 207.46 mGy-cm. Automated exposure control and iter ative reconstruction technique were employed. COMPARISON: CT dated 09/16/2018 FINDINGS: Lung bases are unremarkable. Heart size normal. Right lower lobe atelectasis. Liver, spleen , pancreas, adrenal glands and kidneys are unremarkable. Gallbladder is contracted. Nonobstructive adithya wel gas pattern. No there is moderate colonic fecal loading. Small amount of free fluid in the pelvis , likely physiologic. No free air. No acute osseous abnormality. IMPRESSION: 1. Nonobstructive bowel gas pattern with moderate colonic fecal retention. Reviewed, dictated and finalized at location A.
--- NOTE | ~2020-10-03 | XR_ITS ---
EXAMINATION: XR chest 2V 10/03/2020 11:17 INDICATION: Weakness. Leukocytosis. Shortness of breath. PROCEDURE: 2 view chest COMPARISON: 12/26/2019 FINDINGS: The lungs are clear. The cardiomediastinal silhouette is within normal limits. There are no pleural effusions. There is no pneumothorax suspected. IMPRESSION: 1: NO ACUTE CARDIOPULMONARY DISEASE. Reviewed, dictated and finalized at location A.
--- NOTE | 2020-10-03 01:29 | PC.NURSE ---
girlfriend lexi wants any updates on pt [phone]
--- NOTE | 2020-10-03 01:39 | ED.GENADULT ---
HPI - General Adult General Chief complaint: Psychiatric Symptoms <Geremias Barnes MD - Last Filed: 10/03/20 07:15> Stated complaint: meth usage, hallucination <Geremias Barnes MD - Last Filed: 10/03/20 07:15> Time Seen by Provider: 10/03/20 01:39 <Geremias Barnes MD - Last Filed: 10/03/20 07:15> History of Present Illness HPI narrative: He reports frequent methamphetamine usage and not taking care of himself. He is concerned be =cause he has been seeing bugs crawling on him. He thinks that he is likely dehydrated as well. No fever, chills, nausea, vomiting, chest pain, SOB. <Geremias Barnes MD - Last Filed: 10/03/20 07:15> Related Data Home medications: Home Medications Medication Instructions Recorded Confirmed buprenorphine-naloxone 1 film BUCCAL BID 12/26/19 12/26/19 buspirone 15 mg PO QID 12/26/19 12/26/19 gabapentin 300 mg TID 12/26/19 12/26/19 hydroxyzine pamoate 50 mg PO QID PRN 12/26/19 12/26/19 prazosin 1 mg HS 12/26/19 12/26/19 sertraline 200 mg PO DAILY 12/26/19 12/26/19 buspirone 5 mg PO BID 12/29/19 gabapentin 100 mg PO BID 12/29/19 sertraline [Zoloft] 25 mg PO DAILY 12/29/19 <Geremias Barnes MD - Last Filed: 10/03/20 07:15> Allergies/adverse reactions: Allergies Allergy/AdvReac Type Severity Reaction Status Date / Time banana Allergy Mild rash Verified 10/03/20 01:38 <Geremias Barnes MD - Last Filed: 10/03/20 07:15> Review of Systems Review of Systems: All systems reviewed & are unremarkable except as noted in HPI and below <Geremias Barnes MD - Last Filed: 10/03/20 07:15> Constitutional: Constitutional: Reports no additional constitutional complaints <Geremias Barnes MD - Last Filed: 10/03/20 07:15> Cardiovascular: Cardiovascular: Denies chest pain <Geremias Barnes MD - Last Filed: 10/03/20 07:15> Respiratory: Respiratory: Reports as per HPI <Geremias Barnes MD - Last Filed: 10/03/20 07:15> Gastrointestinal: Gastrointestinal: Reports as per HPI <Geremias Barnes MD - Last Filed: 10/03/20 07:15> Neurologic: Reports system reviewed and no additional complaints, except as documented <Geremias Barnes MD - Last Filed: 10/03/20 07:15> Psychiatric: Psychiatric: Reports as per HPI <Geremias Barnes MD - Last Filed: 10/03/20 07:15> [facility] Past Medical History Medical History: Medical History Anxiety Asthma Depression Hepatitis C antibody positive in blood Substance abuse <Geremias Barnes MD - Last Filed: 10/03/20 07:15> Family History Family History: Family History Other Patient unable to provide medical history <Geremias Barnes MD - Last Filed: 10/03/20 07:15> Social History Social History: Social History Smoking status: Current some day smoker Tobacco type: cigarettes Alcohol intake: unknown Substance use: current Substance use type: heroin, amphetamines and methamphetamine Gender identity (if verbalized by the patient): Male Spiritual care concerns: No <Geremias Barnes MD - Last Filed: 10/03/20 07:15> Exam Const: General: healthy appearing, no acute distress and alert <Geremias Barnes MD - Last Filed: 10/03/20 07:15> Orientation/consciousness: patient oriented x3 <Geremias Barnes MD - Last Filed: 10/03/20 07:15> HENMT: Head: normal to inspection <Geremias Barnes MD - Last Filed: 10/03/20 07:15> Neck: Neck: normal visual inspection and no lymphadenopathy <Geremias Barnes MD - Last Filed: 10/03/20 07:15> Chest: Chest palpation & inspection: no tenderness <Geremias Barnes MD - Last Filed: 10/03/20 07:15> Resp: Effort & Inspection: normal respiratory effort <Geremias Barnes MD - Last Filed: 10/03/20 07:15> Auscultation: clear to auscultatio
[2020-10-03] MEDS: SODIUM CHLORIDE 0.9% IV 2,000 ML 999 ML IV CONT (01:57)
--- NOTE | 2020-10-03 02:00 | PC.NURSE ---
Patient given water and crackers upon request.
[2020-10-03 02:28] LABS: Basophils Absolute Auto 0.1 K/mm3 (0.0-0.1); Basophils Percent Auto 0.7 % (0.2-1.2); Eosinophils Absolute Auto 0.1 K/mm3 (0-0.3); Eosinophils Percent Auto 0.7 % (0-4.4); Hematocrit 39.5 % (42.0-52.0); Hemoglobin 13.6 g/dL (14.0-18.0); Immature Granulocyte Absolute 0.05 K/mm3 (0.00-0.031); Immature Granulocyte Percent A 0.3 % (0-0.5); Lymphocytes Absolute Auto 3.69 K/mm3 (0.9-3.2); Lymphocytes Percent Auto 25.4 % (18.3-44.2); Mean Corpuscular HGB Conc 34.4 g/dl (32-36); Mean Corpuscular Hemoglobin 30.3 pg (26-34); Monocytes Absolute Auto 0.7 K/mm3 (0.1-0.6); Monocytes Percent Auto 4.6 % (2.6-8.5); Neutrophils Absolute Auto 9.9 K/mm3 (1.3-6.7); Neutrophils Percent Auto 68.3 % (45.5-73.1); Platelet Count Result 327 k/mm3 (150-375); Red Blood Count 4.49 M/mm3 (4.6-6.20); Red Cell Distribution Width 12.9 % (11.5-14.5); White Blood Count 14.5 K/mm3 (4.5-10.0)
[2020-10-03 02:43] LABS: Anion Gap 8 mmol/L (8-16); Blood Urea Nitrogen 5 mg/dL (9-20); Calcium 9.3 mg/dL (8.4-10.2); Carbon Dioxide 27 mmol/L (22-30); Chloride 106 mmol/L (98-107); Estimated CRCL calculation 131 ml/min; Estimated Glomerular Filt Rate > 60; Glucose 96 mg/dL (75-110); Potassium 3.3 mmol/L (3.4-5.0); Sodium 141 mmol/L (137-145)
--- NOTE | 2020-10-03 03:24 | PC.NURSE ---
Patient informed this nurse that his hallucinations are back and getting worse. ERP notified. No new orders.
[2020-10-03] MEDS: POTASSIUM CHLORIDE 20 MEQ TABLET 40 MEQ PO (04:16)
--- NOTE | 2020-10-03 06:42 | PC.NURSE ---
Upon discharging patient, patient stated he was suicidal and requested to be transferred. Patient stated I know I just feel like I will hurt myself if I go home. I just cant keep doing this. I am suicidal now. Informed ED charge and ERP. Patient transferred to room 15, belongings taken away, and placed in locked cabinet. Patient has sitter at bedside. Alcorn scale reassessed.
[2020-10-03 07:01] LABS: Basophils Absolute Auto 0.1 K/mm3 (0.0-0.1); Basophils Percent Auto 0.6 % (0.2-1.2); Eosinophils Absolute Auto 0.2 K/mm3 (0-0.3); Eosinophils Percent Auto 1.3 % (0-4.4); Hematocrit 37.7 % (42.0-52.0); Hemoglobin 12.9 g/dL (14.0-18.0); Immature Granulocyte Absolute 0.04 K/mm3 (0.00-0.031); Immature Granulocyte Percent A 0.3 % (0-0.5); Lymphocytes Absolute Auto 3.48 K/mm3 (0.9-3.2); Lymphocytes Percent Auto 23.7 % (18.3-44.2); Mean Corpuscular HGB Conc 34.2 g/dl (32-36); Mean Corpuscular Hemoglobin 30.1 pg (26-34); Mean Corpuscular Volume 87.9 fl (80-100); Mean Platelet Volume 10.2 fl (7.4-10.4); Monocytes Absolute Auto 0.7 K/mm3 (0.1-0.6); Neutrophils Absolute Auto 10.2 K/mm3 (1.3-6.7); Neutrophils Percent Auto 69.1 % (45.5-73.1); Platelet Count Result 307 k/mm3 (150-375); Red Blood Count 4.29 M/mm3 (4.6-6.20); Red Cell Distribution Width 13.1 % (11.5-14.5); White Blood Count 14.7 K/mm3 (4.5-10.0)
[2020-10-03 07:03] LABS: Add Urine Microscopic? NO; Appearance Urine Clear (Clear); Bilirubin Urine Negative (Negative); Blood Urine Negative (Negative); Color Urine Straw (Yellow); Glucose Urine UA Negative (Negative); Ketones Urine Negative (Negative); Leukocyte Esterase Ur Negative LEU/UL (Negative); Nitrate Urine Negative (Negative); Protein Urine Negative (Negative); Urobilinogen Urine Negative mg/dL (<2.0)
[2020-10-03 07:11] LABS: Ethanol < 10 mg/dL (<10)
[2020-10-03 07:12] LABS: Alanine Aminotransferase 80 U/L (4-50); Albumin Level 3.8 g/dL (3.5-5.1); Alkaline Phosphatase 79 U/L (38-126); Anion Gap 5 mmol/L (8-16); Aspartate Amino Transferase 46 U/L (17-59); Bilirubin,Total 0.3 mg/dL (0.2-1.3); Blood Urea Nitrogen 5 mg/dL (9-20); Calcium 8.7 mg/dL (8.4-10.2); Carbon Dioxide 27 mmol/L (22-30); Chloride 110 mmol/L (98-107); Estimated CRCL calculation 131 ml/min; Estimated Glomerular Filt Rate > 60; Glucose 94 mg/dL (75-110); Potassium 4.1 mmol/L (3.4-5.0); Sodium 142 mmol/L (137-145)
[2020-10-03 07:20] LABS: Amphetamine Screen Urine Positive (Negative); Barbiturate Screen Urine Negative (Negative); Benzodiazepines Screen Urine Negative (Negative); Cannabinoid Screen Urine Positive (Negative); Cocaine Screen Urine Negative (Negative); Methadone Screen Urine Negative (Negative); Opiate Screen Urine Negative (Negative); Phencyclidine Screen Urine Negative (Negative)
--- NOTE | 2020-10-03 12:16 | PC.NURSE ---
patient medically cleared at this time per EDP
[2020-10-03 14:07] LABS: EDCOVIDSCREEN Negative (Negative)
--- NOTE | 2020-10-03 14:22 | PC.NURSE ---
[facility] Called for follow up questions on patient at this time. [facility] informed that patient had been medically cleared at 1216 and that the COVID test was negative. Patient's covid results faxed over to [facility] at this time.
--- NOTE | 2020-10-03 15:11 | PC.NURSE ---
Report called to [facility] at this time, bed #6934-B given by Ivon URBINA
== END 2020-10-03 15:44 ==
PROVIDERS: Emergency Medicine; Emergency Provider General Practice; PCP Family Medicine
DX: F15.10 Other stimulant abuse, uncomplicated (principal); E86.0 Dehydration; R45.851 Suicidal ideations; F41.9 Anxiety disorder, unspecified; F32.9 Major depressive disorder, single episode, unspecified; J45.909 Unspecified asthma, uncomplicated; F17.210 Nicotine dependence, cigarettes, uncomplicated; Z20.822 Contact with and (suspected) exposure to COVID-19
CPT/HCPCS: 36415; 71046; 74177; 80048; 80053; 80307; 81003; 84443; 85025; 87426; 96360; 96361; 99285; A9270; C9803; J7030; Q9967